=== PATIENT | female | born 1955 | race Caucasian/White ===

== ENCOUNTER 2025-09-09 17:13 | Inpatient (IN) | payer MEDICARE ==
[~2025-09-09 17:13] MED LIST: Iopamidol-370 76% 500 ML MDV (1 ML CHARGE) ONE
[2025-09-09 17:41] LABS: #Basophils Less than 0.03 10x3/uL (0.0-0.2); #Eosinophils 0.04 10x3/uL (0.0-0.7); #Monocytes 0.50 10x3/uL (0.11-0.59); #Neutrophils 4.12 10x3/uL (1.40-6.50); %Basophils 0.4 % (0.0-1.0); %Eosinophils 0.7 % (0.0-10.0); %Lymphocytes 13.5 % (21.0-51.0); %Monocytes 9.2 % (0.0-10.0); %Neutrophils 76.0 % (42.0-75.0); Hematocrit 35.8 % (36.0-47.0); Hemoglobin 12.0 g/dL (12.0-16.0); Mean Corpuscular Hemoglobin 32.7 pg (27.0-31.0); Mean Corpuscular Volume 97.5 fL (78.0-98.0); Platelet Count 175 10x3/uL (130-400); Red Blood Cell (RBC) Count 3.67 mill/uL (4.20-5.40); White Blood Cell (WBC) Count 5.42 10x3/uL (4.8-10.8)
[2025-09-09 18:23] LABS: ALT (SGPT) 25 U/L (Less than 34); AST (SGOT) 37 U/L (11-34); Albumin 4.0 g/dL (3.1-4.5); Alkaline Phosphatase 68 U/L (40-110); Anion Gap 6 mmol/L (10-20); BUN (Urea Nitrogen) 10 mg/dL (9.8-20.1); Bilirubin, Total 0.6 mg/dL (0.3-1.2); Calc. Creatinine Clearance 0 mL/min (70-130); Calcium 9.5 mg/dL (7.8-10.44); Carbon Dioxide 28 mmol/L (23-31); Chloride 107 mmol/L (98-107); Globulin 2.7 g/dL (2.4-3.5); Glucose 93 mg/dL (80-115); Potassium 4.3 mmol/L (3.5-5.1); Sodium 137 mmol/L (136-145)
[2025-09-09] MEDS ORDERED: Senokot S 8.6-50 MG TAB PO PRN (20:54)
[2025-09-09] MEDS ORDERED: Bisacodyl 10 MG SUPP PR PRN (20:54)
[2025-09-09] MEDS ORDERED: Ondansetron PF 4 MG/2 ML Vial IVP PRN (20:54)
[2025-09-09] MEDS ORDERED: Melatonin 3 MG TAB PO PRN (20:54)
[2025-09-09] MEDS ORDERED: Acetaminophen 325 MG TAB PO PRN (20:54)
[2025-09-09] MEDS ORDERED: Electrolyte Replacement Protocol 1 EACH FS SCH (21:00)
[2025-09-09] MEDS ORDERED: PHOS-NAK 1 PKT PACK PO PRN (21:15)
[2025-09-09] MEDS ORDERED: Magnesium Sulfate In Water 4 GM in Premix 1 BAG IVPB PRN (21:15)
[2025-09-09] MEDS ORDERED: Potassium Chloride 20 MEQ in Premix 1 BAG IVPB PRN (21:15)
[2025-09-09] MEDS: GoLYTELY 4,000 ml Bottle PO SCH (23:03)
[2025-09-09 23:14] VITALS: BMI 15.6
[2025-09-10 00:04] LABS: Hematocrit 36.6 % (36.0-47.0); Hemoglobin 12.3 g/dL (12.0-16.0)
[2025-09-10 05:57] LABS: #Basophils Less than 0.03 10x3/uL (0.0-0.2); #Eosinophils 0.05 10x3/uL (0.0-0.7); #Monocytes 0.52 10x3/uL (0.11-0.59); #Neutrophils 3.53 10x3/uL (1.40-6.50); %Basophils 0.4 % (0.0-1.0); %Eosinophils 1.0 % (0.0-10.0); %Lymphocytes 14.1 % (21.0-51.0); %Monocytes 10.8 % (0.0-10.0); %Neutrophils 73.5 % (42.0-75.0); Hematocrit 35.7 % (36.0-47.0); Hematocrit 36.1 % (36.0-47.0); Hemoglobin 11.9 g/dL (12.0-16.0); Hemoglobin 12.0 g/dL (12.0-16.0); Mean Corpuscular Hemoglobin 32.5 pg (27.0-31.0); Mean Corpuscular Volume 98.6 fL (78.0-98.0); Platelet Count 159 10x3/uL (130-400); Red Blood Cell (RBC) Count 3.66 mill/uL (4.20-5.40); White Blood Cell (WBC) Count 4.81 10x3/uL (4.8-10.8)
[2025-09-10 06:33] LABS: ALT (SGPT) 26 U/L (Less than 34); AST (SGOT) 38 U/L (11-34); Albumin 3.7 g/dL (3.1-4.5); Alkaline Phosphatase 59 U/L (40-110); Anion Gap 9 mmol/L (10-20); BUN (Urea Nitrogen) 7 mg/dL (9.8-20.1); Bilirubin, Total 0.5 mg/dL (0.3-1.2); Calc. Creatinine Clearance 69 mL/min (70-130); Calcium 8.8 mg/dL (7.8-10.44); Carbon Dioxide 27 mmol/L (23-31); Chloride 111 mmol/L (98-107); Globulin 2.6 g/dL (2.4-3.5); Glucose 89 mg/dL (80-115); Potassium 3.6 mmol/L (3.5-5.1); Sodium 143 mmol/L (136-145)
[2025-09-10] MEDS ORDERED: PROPOFOL 20 ML ONE ×2 (08:51→09:44)
[2025-09-10] MEDS ORDERED: PROPOFOL 200 MG/20 ML VIAL ONE (09:25)
[2025-09-10] MEDS: PNEUMOC 20-VAL CONJ-DIP CRM/PF 0.5 ML SYRINGE IM ONE (14:25)
[2025-09-10 14:31] VITALS: BP 129/77; TEMP 98
[2025-09-10 15:27] LABS: Hematocrit 35.7 % (36.0-47.0); Hemoglobin 11.9 g/dL (12.0-16.0)
== END 2025-09-10 15:28 | disposition home or self-care (01) | DRG 378 ==
LOC: ERS 17:13 → T4-B 20:54
PROVIDERS: ADMIT Internal Medicine; ATTEND Internal Medicine
PROC: 0DBN8ZX Excision of Sigmoid Colon, Via Natural or Artificial Opening Endoscopic, Diagnostic (ICD-10-PCS; principal; 2025-09-09)
DX: K92.1 Melena (principal); G12.21 Amyotrophic lateral sclerosis; E78.5 Hyperlipidemia, unspecified; K62.89 Other specified diseases of anus and rectum; D64.9 Anemia, unspecified; Z90.710 Acquired absence of both cervix and uterus
CPT/HCPCS: 36415; 74177; 80053; 85025; 86850; 86900; 86901; 88305; 88341; 88342; J2704; J7042; Q9967